=== PATIENT | male | born 1960 | race Caucasian/White ===

== ENCOUNTER 2018-04-07 07:41 | Day surgery (SDC) | payer MEDICAID ==
[2018-04-07 08:24] VITALS: O2SAT 100
[2018-04-07] MEDS ORDERED: Lactated Ringer's 1,000 ML IV ONE (09:10)
--- NOTE | 2018-04-07 09:14 | CP.SDSHP ---
Same Day Surgery H & P - History Proposed Procedure: COLONSCOPY Pre-Op Diagnosis: SEE NOTES - Previous Medical/Surgical History Cardiac: Hypertension, ASHD/CAD Endocrine/Metabolic: Diabetes, Other Previous Surgical History: CABG - Allergies Allergies: Allergies No Known Allergies Allergy (Verified 04/07/18 08:01) - Physical Exam General Appearance: N Vital Signs: Vital Signs 04/07/18 08:09 Temperature 98.4 F Pulse Rate 52 L Respiratory 19 Rate Blood Pressure 128/63 O2 Sat by Pulse 100 Oximetry Mental Status: Alert & Oriented x3 Neuro: WNL Heart: Other Lungs: WNL GI: Other - {Optional Preform as Required} Breast: WNL Abdomen: Other Rectal: Other Integument: WNL : WNL Ortho: WNL ENT: Other - Impression Pt. Evaluated Today:Candidate for Anesthesia & Procedure: Yes - Date & Time Time: 09:14 Short Stay Discharge - Short Stay Discharge Admitting Diagnosis/Reason for Visit: ABDOMINAL PAIN / DYSPEPSIA Disposition: HOME/ ROUTINE
[2018-04-07] MEDS ORDERED: Propofol 10 mg/ml Inj (20 ML) ONE (09:15)
[2018-04-07 09:59] VITALS: RESP 14
[2018-04-07] MEDS ORDERED: Belladonna-Phenobarbital PO ONE (10:00)
[2018-04-07 10:24] VITALS: TEMP 97.2
[2018-04-07 11:11] VITALS: BP 126/60; PULSE 54
== END 2018-04-07 11:00 | disposition home or self-care (01) ==
LOC: C.ENDO 07:41
PROVIDERS: ATTEND Specialist
DX: R10.9 Unspecified abdominal pain (principal); K30 Functional dyspepsia; K64.8 Other hemorrhoids
CPT/HCPCS: 45378; 82948; J2001; J2704; J7120

== ENCOUNTER 2018-04-21 08:19 | Day surgery (SDC) | payer MEDICAID ==
[2018-04-21 09:14] VITALS: BMI 32.3
[2018-04-21 09:15] VITALS: PULSE 56; RESP 20; TEMP 98; O2SAT 100
[2018-04-21] MEDS ORDERED: Lidocaine Hydrochloride 5 ML INJ ONE (09:29)
[2018-04-21] MEDS ORDERED: Propofol 10 mg/ml Inj (20 ML) ONE (09:29)
--- NOTE | 2018-04-21 09:29 | CP.SDSHP ---
Same Day Surgery H & P - History Proposed Procedure: EGD Pre-Op Diagnosis: SEE NOTES - Previous Medical/Surgical History Cardiac: Hypertension, ASHD/CAD Endocrine/Metabolic: Diabetes, Other Misc: Other Previous Surgical History: CABG - Allergies Allergies: Allergies No Known Allergies Allergy (Verified 04/08/18 07:25) - Physical Exam General Appearance: N Vital Signs: Vital Signs 04/21/18 08:58 Temperature 98 F Pulse Rate 56 L Respiratory 20 Rate Blood Pressure 118/57 L O2 Sat by Pulse 100 Oximetry Mental Status: Alert & Oriented x3 Neuro: WNL Heart: Other Lungs: WNL GI: Other - {Optional Preform as Required} Breast: WNL Abdomen: Other Rectal: Other Integument: WNL : WNL Ortho: Other ENT: WNL - Impression Pt. Evaluated Today:Candidate for Anesthesia & Procedure: Yes - Date & Time Time: 09:28 Short Stay Discharge - Short Stay Discharge Admitting Diagnosis/Reason for Visit: ABDOMINAL PAIN / DYSPEPSIA Disposition: HOME/ ROUTINE
[2018-04-21] MEDS ORDERED: Belladonna-Phenobarbital PO ONE (09:45)
[2018-04-21 10:21] VITALS: BP 125/69
== END 2018-04-21 10:36 | disposition home or self-care (01) ==
LOC: C.ENDO 08:19
PROVIDERS: ATTEND Specialist
DX: K30 Functional dyspepsia (principal); R10.84 Generalized abdominal pain; B96.81 Helicobacter pylori [H. pylori] as the cause of diseases classified elsewhere; E11.9 Type 2 diabetes mellitus without complications; I10 Essential (primary) hypertension; I25.10 Atherosclerotic heart disease of native coronary artery without angina pectoris; K25.9 Gastric ulcer, unspecified as acute or chronic, without hemorrhage or perforation; K44.9 Diaphragmatic hernia without obstruction or gangrene; Z95.1 Presence of aortocoronary bypass graft; K31.9 Disease of stomach and duodenum, unspecified; K21.0 Gastro-esophageal reflux disease with esophagitis
CPT/HCPCS: 43239; 82948; 88305; J2704